=== PATIENT | female | born 1985 | race Asian ===

== ENCOUNTER 2016-11-06 16:52 | Emergency (ER) | payer OTHER ==
[~2016-11-06] VITALS: Ht 175.3 cm; Wt 85.3 kg
[2016-11-06 19:02] VITALS: BP 114/60; TEMP 97.8
== END 2016-11-06 19:07 | disposition home or self-care (01) ==
LOC: ED 16:52
DX: M25.462 Effusion, left knee (principal)
CPT/HCPCS: 99282